=== PATIENT | male | born 1990 | race Caucasian/White ===

== ENCOUNTER 2017-10-09 10:18 | Emergency (ER) | payer OTHER ==
[~2017-10-09] VITALS: Ht 175.3 cm; Wt 68.5 kg
[2017-10-09 10:40] VITALS: Ht 175.3 cm; Wt 68.5 kg
[2017-10-09] MEDS ORDERED: SODIUM CHLORIDE 0.9% 1000ML 1,000 ML IV STA (11:15)
[2017-10-09] MEDS ORDERED: ONDANSETRON INJ 2 MG/ML 2 ML VIAL IV STA (11:15)
--- NOTE | 2017-10-09 11:21 | EMERGENCY ROOM VISIT NOTE ---
History First contact with patient: 11:03 Chief Complaint: VOMITING Stated Complaint: VOMITING History of Present Illness The patient is a 27 year old male who presents to the Emergency Room with complaints of nausea associated with vomiting and diarrhea. The patient states he awoke at approximately 1 AM, and was not feeling well. He went to the bathroom, where he had one episode of diarrhea, then began throwing up. He states throughout the night, he threw up and had very loose bowel movements which she describes as diarrhea approximately 12-15 times. He states his symptoms were assisted with a headache last night. He denies any chills or fevers. He does report some mild right earache. He states he is having some chest discomfort from heaving, and only experiences the discomfort when he is dry heaving and throwing up. The patient states now he is feeling slightly better than he felt throughout the night. He did take Zofran at approximately 3 AM without significant improvement in his symptoms. He describes the emesis as bile-like, as he threw up all the food he had in his system early last night. The patient is in town from [place], and was at the football game yesterday. 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 He states the diarrhea is associated with abdominal cramping, and he states "it came out of nowhere". The patient denies any upper respiratory infection symptoms including sore throat, and congestion, runny nose, facial pain, or others. He does not have a history of any specific gastrointestinal disorders, but does state he has had ongoing diarrhea/constipation which has not been diagnosed for the past few years. The patient denies chest pain, difficulty breathing, confusion, dizziness, visual disturbances, or other symptoms. Review of Systems A complete 10 point review of systems was reviewed with the patient with pertinent positives and negatives as per history of present illness. All else were negative. Social History Smoking Status: Never Smoker Current/Historical Medications Scheduled Ondasetron Odt (Zofran Odt), 4 MG SL Q6H Physical Exam Vital Signs Date Time Temp Pulse Resp B/P (MAP) Pulse Ox O2 Delivery O2 Flow Rate FiO2 10/09/17 16:36 112 20 96 10/09/17 16:23 112 10/09/17 16:06 114 20 97 10/09/17 15:06 108 18 97 10/09/17 15:00 115/65 10/09/17 14:31 108/59 10/09/17 14:30 113 24 98 10/09/17 14:00 109 17 99 10/09/17 13:12 113/62 10/09/17 13:00 108 19 105/63 96 10/09/17 12:57 110/61 10/09/17 12:30 108 21 100 10/09/17 12:11 102 22 106/60 100 Room Air 10/09/17 12:08 106/60 10/09/17 12:07 103 10/09/17 12:00 106 15 10/09/17 11:30 123 21 10/09/17 10:40 37.6 131 18 117/69 95 Room Air Physical Exam VITALS: Vitals are noted on the nurse's note and reviewed by myself. Vital signs stable, with tachycardia. GENERAL: This is a 27-year-old white male, presents with his mother, in no acute distress, nondiaphoretic, well-developed well-nourished. SKIN: The skin was without rashes, erythema, edema, or bruising. There is no tenting of the skin. Capillary reflex less than 2 seconds. HEAD: Normocephalic atraumatic. EARS: External auditory canals clear, tympanic membranes pearly worley without erythema or effusion bilaterally. EYES: Pupils equal round and reactive to light and accommodation. Conjunctivae without injection, sclerae without icterus. Extraocular movements intact. NOSE: Patent, turbinates without inflammation or discharge. No sinus tenderness. MOUTH: Mucous membranes moist. Tonsils are not enlarged. Pharynx without erythema or exudate. Uvula midline. Airway patent. Tongue does not deviate. NECK: Supple without nuchal rigidity. No lymphadenopathy. No thyromegaly. Cervical spine is nontender. No JVD. HEART: Regular rate and rhythm without murmurs gallops or rubs. Heart rate is slightly elevated at 110. LUNGS: Clear to auscultation bilaterally without wheezes, rales or rhonchi. No dullness to percussion. No retractions or accessory muscle use. ABDOMEN: Positive bowel sounds x 4. Normal tympanic percussion. The abdomen is diffusely tender on palpation, but only mildly. Soft, without masses or organomegaly. Sarah sign negative. No guarding or rebound tenderness. MUSCULOSKELETAL: No muscle atrophy, erythema, or edema noted. Full range of motion without joint tenderness in all extremities. No tenderness to palpation. Normal gait. Strength 5/5 throughout. NEURO: Patient was alert and oriented to person place and time. Normal sensation to light and sharp touch. No focal neurological deficits. Medical Decision & Procedures ER Provider Diagnostic Interpretation: CBC did show mild leukocytosis with left shift with white count of 14,000. No anemia or thrombocytopenia. CMP did not show significant electrolyte abnormality. Renal and hepatic function were normal. Lipase was negative. TSH was 0.75. Laboratory Results 10/09/17 11:22 Red Blood Count 5.13, Mean Corpuscular Volume 87.5, Mean Corpuscular Hemoglobin 31.4, Mean Corpuscular Hemoglobin Concent 35.9, Mean Platelet Volume 10.7, Neutrophils (%) (Auto) 94.9, Lymphocytes (%) (Auto) 2.7, Monocytes (%) (Auto) 2.1, Eosinophils (%) (Auto) 0.1, Basophils (%) (Auto) 0.0, Neutrophils # (Auto) 13.40, Lymphocytes # (Auto) 0.38, Monocytes # (Auto) 0.29, Eosinophils # (Auto) 0.01, Basophils # (Auto) 0.00 10/09/17 11:22 Test 10/09/17 11:22 White Blood Count 14.11 K/uL (4.8-10.8) Red Blood Count 5.13 M/uL (4.7-6.1) Hemoglobin 16.1 g/dL (14.0-18.0) Hematocrit 44.9 % (42-52) Mean Corpuscular Volume 87.5 fL (80-100) Mean Corpuscular Hemoglobin 31.4 pg (25-34) Mean Corpuscular Hemoglobin Concent 35.9 g/dl (32-36) Platelet Count 139 K/uL (130-400) Mean Platelet Volume 10.7 fL (7.4-10.4) Neutrophils (%) (Auto) 94.9 % Lymphocytes (%) (Auto) 2.7 % Monocytes (%) (Auto) 2.1 % Eosinophils (%) (Auto) 0.1 % Basophils (%) (Auto) 0.0 % Neutrophils # (Auto) 13.40 K/uL (1.4-6.5) Lymphocytes # (Auto) 0.38 K/uL (1.2-3.4) Monocytes # (Auto) 0.29 K/uL (0.11-0.59) Eosinophils # (Auto) 0.01 K/uL (0-0.5) Basophils # (Auto) 0.00 K/uL (0-0.2) RDW Standard Deviation 40.5 fL (36.4-46.3) RDW Coefficient of Variation 12.7 % (11.5-14.5) Immature Granulocyte % (Auto) 0.2 % Immature Granulocyte # (Auto) 0.03 K/uL (0.00-0.02) Anion Gap 6.0 mmol/L (3-11) Est Creatinine Clear Calc Drug Dose 92.7 ml/min Estimated GFR () 99.5 Estimated GFR (Non- 85.8 BUN/Creatinine Ratio 23.2 (10-20) Calcium Level 8.8 mg/dl (8.5-10.1) Total Bilirubin 0.8 mg/dl (0.2-1) Aspartate Amino Transf (AST/SGOT) 14 U/L (15-37) Alanine Aminotransferase (ALT/SGPT) 25 U/L (12-78) Alkaline Phosphatase 61 U/L (45-117) Total Protein 7.6 gm/dl (6.4-8.2) Albumin 4.2 gm/dl (3.4-5.0) Globulin 3.4 gm/dl (2.5-4.0) Albumin/Globulin Ratio 1.2 (0.9-2) Lipase 66 U/L (73-393) Thyroid Stimulating Hormone (TSH) 0.785 uIu/ml (0.300-4.500) Medications Administered Medications (Trade) Dose Ordered Sig/Silverio Route Start Time Stop Time Status Last Admin Dose Admin Sodium Chloride 1,000 ml @ 999 mls/hr Q1H1M STAT IV 10/09/17 11:15 10/09/17 12:15 DC 10/09/17 11:15 999 MLS/HR Ondansetron HCl (Zofran Inj) 4 mg NOW STAT IV 10/09/17 11:15 10/09/17 11:18 DC 10/09/17 11:15 4 MG Lactated Ringer's 1,000 ml @ 999 mls/hr Q1H1M STAT IV 10/09/17 12:35 10/09/17 13:35 DC 10/09/17 12:35 999 MLS/HR Lactated Ringer's 1,000 ml @ 999 mls/hr Q1H1M STAT IV 10/09/17 14:35 10/09/17 15:35 DC 10/09/17 14:35 999 MLS/HR Acetaminophen (Tylenol Tab) 1,000 mg NOW STAT PO 10/09/17 16:38 10/09/17 16:39 DC 10/09/17 16:38 1,000 MG Ondansetron HCl (ZOFRAN ODT 4MG Home Pack) 1 homepack UD ONCE PO 10/09/17 16:45 10/09/17 16:46 DC 10/09/17 16:44 1 HOMEPACK Medical Decision The patient presented today with complaints of significant vomiting and diarrhea overnight. The patient states he did vomit and move his bowels approximately 12-15 times throughout the night. He presents today stating he continues to feel very lousy, but has not vomited this morning. He was initially given 1 L normal saline solution and 4 mg Zofran. The patient reported significant improvement in his symptoms with this medication. He continues to be tachycardic, so he was given another liter of fluids, lactated Ringer's at this time. The patient continued to be tachycardic with a heart rate in the 110s, so he was given a third liter of fluid. He continues to feel significantly improved with fluid resuscitation. He was also given Gatorade and saltine crackers to help hopefully lower the heart rate. I did discuss the case with Dr. Iqbal, who did see and evaluate the patient individually. He was in agreement with the assessment and plan. Differential diagnosis includes: Acute gastroenteritis, pancreatitis, appendicitis, cholecystitis, diverticulitis, food poisoning, malignancy, and others. The patient's symptoms are consistent with a viral gastroenteritis with volume depletion. Medication Reconcilliation Current Medication List: was personally reviewed by me Blood Pressure Screening Patient's blood pressure: Low blood pressure was felt to be situational and related to significant vomiting and diarrhea. Impression Primary Impression: Gastroenteritis Departure Information Dispostion Home / Self-Care Condition GOOD Prescriptions Ondasetron Odt (ZOFRAN ODT) 4 Mg Tab 4 MG SL Q6H for Nausea, #10 TAB Prov: Tabby Callejas PA-C 10/09/17 Referrals No Doctor, Assigned (PCP) Patient Instructions ED Gastroenteritis Viral, [facility] Additional Instructions You were seen in the emergency department today for nausea, vomiting, and diarrhea. This does appear to be related to an acute viral gastroenteritis. You have been prescribed Zofran to be used for any nausea or vomiting. Please take this medication as prescribed. Ibuprofen(Motrin, Advil) may be used for fever or pain. Use 600mg every six hours as needed. Take with food. Avoid using more than 2400mg in a 24 hour period. Do not use 2400mg per day for more than three consecutive days without physician direction. Prolonged inappropriate use can lead to stomach upset or ulcers. (AND/OR) Acetaminophen(Tylenol) may be used for fever or pain. Use 1000mg every six hours as needed. Avoid using more than 3000mg in a 24 hour period. *You may alternate these medications every 4-6 hours. Please exceed the recommended daily dosages. As discussed, your heart rate continues to be elevated. I suspect this is related to the fever and dehydration. Please stay very well-hydrated. Please monitor your heart rate and if it continues to stay high or worsens, follow up in the emergency Department immediately. You may consider soups, broths, Jell-O, popsicles, juice, soda, or water to help maintain your hydration status. Please keep your fever down using Tylenol and/or Motrin. Follow-up with a primary care provider near your home in 1-2 days for recheck and further evaluation of your symptoms. Return to the emergency department for worsening abdominal pain, nausea, vomiting, fever which does not improve with medications, or other concerning symptoms which are not relieved with medications
[2017-10-09 11:57] LABS: COMPLETE YES; EOS % 0.1 %; HEMATOCRIT 44.9 % (42-52); IG% 0.2 %; LYMPH % 2.7 %; LYMPH ABS # 0.38 K/uL (1.2-3.4); MEAN CELL VOLUME 87.5 fL (80-100); MEAN CORPUSCULAR HEMOGLOBIN 31.4 pg (25-34); MEAN CORPUSCULAR HGB CONC 35.9 g/dl (32-36); MEAN PLATELET VOLUME 10.7 fL (7.4-10.4); MONO % 2.1 %; NEUT % 94.9 %; PLATELET COUNT 139 K/uL (130-400); RED BLOOD COUNT 5.13 M/uL (4.7-6.1); WHITE BLOOD COUNT 14.11 K/uL (4.8-10.8)
[2017-10-09 12:21] LABS: BUN/CREATININE RATIO 23.2 (10-20); CALCIUM 8.8 mg/dl (8.5-10.1); CREATININE 1.16 mg/dl (0.60-1.40); POTASSIUM 3.9 mmol/L (3.5-5.1)
[2017-10-09 12:24] LABS: ALB/GLOB RATIO 1.2 (0.9-2)
[2017-10-09] MEDS ORDERED: LACTATED RINGER'S 1000ML 1,000 ML IV STA ×2 (12:35→14:35)
[2017-10-09 14:23] LABS: THYROID STIMULATING HORMONE 0.785 uIu/ml (0.300-4.500)
[2017-10-09] MEDS ORDERED: ACETAMINOPHEN 500 MG TAB PO STA (16:38)
[2017-10-09] MEDS ORDERED: ONDANSETRON HOME PACK 4MG OD TAB PO ONE (16:45)
--- NOTE | 2017-10-09 16:49 | EMERGENCY ROOM VISIT NOTE ---
ED Visit Note First contact with patient: 11:03 The patient was seen and examined with Tabby Callejas PA-C. I agree with the history, physical and findings. Please see the note for disposition and details.
[2017-10-09] MEDS ORDERED: ONDA4TAB10 SL (17:02)
[2017-10-09 17:16] VITALS: BP 104/52; PULSE 108; TEMP 37.6; O2SAT 98
== END 2017-10-09 17:16 | disposition home or self-care (01) ==
LOC: C.EDB 10:21 → C.EDC 17:16
DX: K52.9 Noninfective gastroenteritis and colitis, unspecified (principal); R11.2 Nausea with vomiting, unspecified